=== PATIENT | female | born 1990 | race Caucasian/White ===

== ENCOUNTER 2025-04-10 22:41 | Emergency (ER) | payer OTHER ==
[~2025-04-10] VITALS: Ht 154.9 cm; Wt 94.3 kg
[2025-04-11 01:14] VITALS: BP 122/70; TEMP 98.1; O2SAT 97
== END 2025-04-11 01:15 | disposition home or self-care (01) ==
LOC: ER 22:46
DX: S90.31XA Contusion of right foot, initial encounter (principal); X58.XXXA Exposure to other specified factors, initial encounter; Y93.89 Activity, other specified; Y92.89 Other specified places as the place of occurrence of the external cause; Y99.8 Other external cause status
CPT/HCPCS: 93970-TC